=== PATIENT | male | born 1960 | race Caucasian/White ===

== ENCOUNTER 2017-11-22 11:23 | Emergency (ER) | payer MEDICARE, OTHER ==
[2017-11-22 11:38] VITALS: BP 163/95; PULSE 79; TEMP 98; BMI 29.9
[2017-11-22] MEDS ORDERED: CYCLOBENZAPRINE HCL 10 MG TABLET (FP) PO ONE (12:10)
[2017-11-22] MEDS ORDERED: KETOROLAC TROMETHAMINE 60 MG/2 ML VIAL IM ONE (12:10)
[2017-11-22] MEDS ORDERED: CYCLOBENZAPRINE HCL 10 MG TABLET (FP) ONE (12:18)
[2017-11-22] MEDS ORDERED: KETOROLAC TROMETHAMINE 60 MG/2 ML VIAL ONE (12:18)
--- NOTE | 2017-11-22 12:29 | PDOC ---
History of Present Illness - General Chief Complaint: Pain Stated Complaint: BACK PAIN Time Seen by Provider: 11/22/17 11:51 History Source: Patient Exam Limitations: No Limitations - History of Present Illness Initial Comments: 11/22/17 12:29 You male resents the ED with complaints of bilateral upper scapula pain for the past few days worsened with movement and deep breathing. Patient states went to an urgent care clinic 2 days ago and was given Naprosyn along with Flexeril 10 mg which she states did alleviate his discomfort but made him very groggy so stopped taking the medication. Patient denies difficulty breathing, chest pain, fever, rash, swelling, recent travel, recent injury or recent change in activity. Patient states history of cardiac stent alone cholecystectomy . Timing/Duration: other Severity: mild, moderate Associated Symptoms: reports: denies symptoms Past History - Travel Traveled outside of the country in the last 30 days: No - Past Medical History Allergies/Adverse Reactions: Allergies Allergy/AdvReac Type Severity Reaction Status Date / Time No Known Allergies Allergy Verified 11/22/17 11:37 Home Medications: Ambulatory Orders Amlodipine Besylate 10 mg PO DAILY 07/08/15 Aspirin [ASA -] 325 mg PO DAILY 07/08/15 Clopidogrel Bisulfate [Plavix -] 75 mg PO DAILY 07/08/15 Metformin HCl [Glucophage] 1,000 mg PO BID 07/08/15 Metoprolol Succinate [Toprol Xl] 50 mg PO DAILY 07/08/15 Valsartan 160 mg PO DAILY 07/08/15 Cardiac Disorders: Yes COPD: No Diabetes: Yes HTN: Yes Hypercholesterolemia: Yes Kidney Stones: Yes - Surgical History Cardiac Surgery: Yes (2004 [facility]) Cholecystectomy: Yes - Suicide/Smoking/Psychosocial Hx Smoking Status: No Smoking History: Never smoked Have you smoked in the past 12 months: No Number of Cigarettes Smoked Daily: 0 Hx Alcohol Use: Yes Drug/Substance Use Hx: No Substance Use Type: Alcohol Patient Lives Alone: No Lives with/in: spouse/SO Review of Systems - Review of Systems Able to Perform ROS?: No Constitutional: No: Symptoms Reported HEENTM: No: Symptoms Reported Respiratory: No: Symptoms reported Cardiac (ROS): No: Symptoms Reported ABD/GI: No: Symptoms Reported : No: Symptoms Reported Musculoskeletal: Yes: Back Pain, Muscle Pain Integumentary: No: Symptoms Reported Neurological: No: Symptoms reported Endocrine: No: Symptoms Reported Hematologic/Lymphatic: No: Symptoms Reported *Physical Exam - Vital Signs Last Vital Signs Temp Pulse Resp BP Pulse Ox 98 F 79 18 163/95 100 11/22/17 11:34 11/22/17 11:34 11/22/17 11:34 11/22/17 11:34 11/22/17 11:34 - Physical Exam General Appearance: Yes: Nourished, Appropriately Dressed. No: Apparent Distress Neck: positive: Supple. negative: Tender, Decreased range of motion Respiratory/Chest: positive: Lungs Clear, Normal Breath Sounds. negative: Chest Tender, Respiratory Distress, Accessory Muscle Use Cardiovascular: positive: Regular Rhythm, Regular Rate. negative: Murmur Gastrointestinal/Abdominal: positive: Soft. negative: Tenderness (ruq ) Musculoskeletal: positive: Other (tender at bilateral paraspinous muscle at t6- 8 and laterally bilateral). negative: Decreased Range of Motion, Vertebral Tenderness (no midline tenderness) Integumentary: positive: Normal Color, Warm, Moist. negative: Erythema, Rash, Swelling, Ecchymosis Neurologic: positive: Motor Strength 5/5 (ambulatory) Heart Score/ECG Review - History History: Slightly suspicious - Electrocardiogram EKG: Normal - Age Age: 45-65 - Risk Factors Risk Factors Heart Score: Yes Positive family hx of cardiac disease Based on the list above the patient has:: 1-2 risk factors - ECG Intrepretation Rhythm: Regular Rhythm (rate71. sinus rhythm. Intervals are regular. No ST elevation or depression noted. QTC 421 ms.) ED Treatment Course - RADIOLOGY Radiology Studies Ordered: Category Date Time Status CHEST PA & LAT [RAD] Stat Radiology 11/22/17 12:10 Ordered Medical Decision Making - Medical Decision Making 11/22/17 12:33 Patient here with 3-4 days of upper scapular pain which she describes as aching and sharp intermittently worsened with movement and deep breathing. Patient on exam have reproducible pain at T6-T8 paraspinous and laterally bilateral. Secondary to patient's cardiac history patient was ordered for an EKG. Patient will also be ordered for a chest x-ray to rule out ulnar etiology. Patient also ordered for Toradol and Flexeril for secondary to likely muscle skeletal pain. 11/22/17 12:34 Chest x-ray shows no acute pathology or significant change when compared to 201411/22/17 12:53 States moderate improvement of back discomfort. Patient has Flexeril 10 g at home so as discussed with she will score them in half and take 5 mg 3 times a day as needed. She also states has Motrin at home so recommended patient to take 600 mg 3 times a day also for the next few days. *DC/Admit/Observation/Transfer Diagnosis at time of Disposition: Musculoskeletal back pain - Discharge Dispostion Disposition: HOME Condition at time of disposition: Improved - Referrals Referrals: Paresh Schroeder [Primary Care Provider] - - Patient Instructions Printed Discharge Instructions: DI for Back Spasm Additional Instructions: Please take 600 mg of Motrin which is equivocal to 3 tablets of 200 mg 3 times a day for the next 4 days along with Flexeril 5 mg 3 times a day for the next 4 days. He may apply heat to the affected area 15 minutes 4 times a day and gentle massage. - Post Discharge Activity
--- NOTE | 2017-11-24 12:49 | EKG ---
Test Reason : Blood Pressure : / mmHG Vent. Rate : 071 BPM Atrial Rate : 071 BPM P-R Int : 162 ms QRS Dur : 086 ms QT Int : 388 ms P-R-T Axes : 024 011 029 degrees QTc Int : 421 ms NORMAL SINUS RHYTHM NORMAL ECG WHEN COMPARED WITH ECG OF 09-JUL-2015 14:45, NO SIGNIFICANT CHANGE WAS FOUND Confirmed by KALEB PETE MD ([id number]) on 11/24/2017 12:48:34 PM Referred By: SHAW Confirmed By:KALEB PETE MD
== END 2017-11-22 12:59 | disposition home or self-care (01) ==
LOC: JERFT 11:23 → JER 11:23 → JERFT 12:59
PROC: 3E0233Z Introduction of Anti-inflammatory into Muscle, Percutaneous Approach (ICD-10-PCS; principal; 2017-11-22)
DX: M62.830 Muscle spasm of back (principal); M54.6 Pain in thoracic spine; I25.10 Atherosclerotic heart disease of native coronary artery without angina pectoris; I10 Essential (primary) hypertension; Z95.5 Presence of coronary angioplasty implant and graft; E11.9 Type 2 diabetes mellitus without complications; Z79.84 Long term (current) use of oral hypoglycemic drugs; E78.00 Pure hypercholesterolemia, unspecified; Z87.442 Personal history of urinary calculi
CPT/HCPCS: 71046-TC-FY; 93005; 93010; 99281-25

== ENCOUNTER 2022-11-19 04:01 | Day surgery (SDC) | payer OTHER ==
[2022-11-18 15:12] VITALS: BMI 28.5
[2022-11-19] MEDS ORDERED: HYDROCHLOROTHIAZIDE 25 MG TABLET (FP) PO ONE (09:30)
[2022-11-19] MEDS ORDERED: hydrALAZINE HCL 25 MG TABLET (FP) PO ONE (09:30)
[2022-11-19] MEDS ORDERED: LIDOCAINE HCL 1%, 10 MG/ML (10ML VIAL) MDV ONE (10:08)
[2022-11-19] MEDS ORDERED: BUPIVACAINE HCL/PF 0.5% (5MG/ML) 10 ML VIAL ONE (10:08)
[2022-11-19] MEDS ORDERED: LIDOCAINE HCL 2% (20ML MULTI-DOSE VIAL) ONE (10:14)
[2022-11-19] MEDS ORDERED: ceFAZolin SODIUM 1 GM VIAL ONE (11:09)
[2022-11-19] MEDS ORDERED: MIDAZOLAM HCL 2 MG/2 ML SINGLE DOSE VIAL ONE (11:10)
[2022-11-19] MEDS ORDERED: PROPOFOL 20 ML ONE (11:10)
[2022-11-19] MEDS ORDERED: hydrALAZINE HCL 20 MG/ML VIAL ONE (11:17)
[2022-11-19] MEDS ORDERED: LIDOCAINE HCL 2% (50ML VIAL) NR ONE ×2 (11:22)
[2022-11-19] MEDS ORDERED: ceFAZolin SODIUM 1 GM VIAL IVPB ONE ×2 (11:51→12:02)
[2022-11-19] MEDS ORDERED: BUPIVACAINE HCL/PF 0.5% (5 MG/ML) 30 ML VIAL IJ ONE (12:06)
[2022-11-19] MEDS ORDERED: MEPERIDINE HCL 25 MG/ML VIAL ONE (12:18)
[2022-11-19] MEDS ORDERED: ACETAMINOPHEN 1000 MG/100 ML BAG IVPB ONE ×2 (12:19→12:22)
[2022-11-19] MEDS ORDERED: MEPERIDINE HCL CARPU-JECT 25 MG/1 ML DISP.SYRIN IVPUSH ONE ×2 (12:20→12:21)
[2022-11-19 13:51] VITALS: BP 180/71; PULSE 55; RESP 18; TEMP 98.2
== END 2022-11-19 14:40 | disposition home or self-care (01) ==
LOC: JASU-SURG 04:01
PROVIDERS: ATTEND Student in an Organized Health Care Education/Training Program
PROC: 0Y6Q0Z1 Detachment at Left 1st Toe, High, Open Approach (ICD-10-PCS; principal; 2022-11-19 11:00)
DX: E11.621 Type 2 diabetes mellitus with foot ulcer (principal); L97.526 Non-pressure chronic ulcer of other part of left foot with bone involvement without evidence of necrosis; M86.672 Other chronic osteomyelitis, left ankle and foot; Z79.84 Long term (current) use of oral hypoglycemic drugs
CPT/HCPCS: 36415; 73630-TC-LT; 82962; 84132; 87070; 87075; 87186; 87205; 88304-TC; 88305-TC; 88311-TC; 94760; 97116-GP

== ENCOUNTER 2023-01-01 11:52 | Inpatient (IN) | payer OTHER ==
[2023-01-01 11:59] VITALS: BMI 27.8
[2023-01-01 13:08] LABS: BASO % 0.4 % (0-2.0); EOS % 0.2 % (0-4.5); HEMATOCRIT 31.1 % (35.4-49); LYMPH % 3.9 % (8-40); MCH 29.8 pg (25.7-33.7); MCHC 32.3 g/dl (32.0-35.9); MEAN CELL VOLUME 92.3 fl (80-96); MEAN PLT VOLUME 11.2 fl (7.5-11.1); MONO % 7.3 % (3.8-10.2); NEUT % 88.2 % (42.8-82.8); PLATELET COUNT 140 10^3/uL (134-434); RBC 3.37 M/mm3 (4.00-5.60); RDW 14.5 % (11.9-15.9); WHITE BLOOD COUNT 12.4 K/mm3 (4.0-10.0)
[2023-01-01 13:17] LABS: VENOUS BASE EXCESS -7.6 mmol/L (-2-2); VENOUS O2 SATURATION 35.5 % (70-80); VENOUS PCO2 36.4 mmHg (38-52); VENOUS PH 7.31 (7.310-7.410)
[2023-01-01 13:43] LABS: POTASSIUM 5.2 mmol/L (3.5-5.1)
[2023-01-01 13:47] LABS: ALBUMIN 3.6 g/dl (3.4-5.0); BLOOD UREA NITROGEN 55.3 mg/dL (7-18); CALCIUM 8.8 mg/dL (8.5-10.1)
[2023-01-01 13:50] LABS: CREATININE 3.9 mg/dL (0.55-1.3)
[2023-01-01 13:52] LABS: BILIRUBIN,TOTAL 0.8 mg/dL (0.2-1); TOT PROT 7.4 g/dl (6.4-8.2)
[2023-01-01] MEDS ORDERED: DOXYCYCLINE INJECTION 100 MG in DEXTROSE 5%-WATER 100 ML IVPB ONE (14:02)
[2023-01-01] MEDS ORDERED: CEFTRIAXONE 1 GM/50 ML BAG ONE (14:23)
[2023-01-01] MEDS ORDERED: DOXYCYCLINE HYCLATE 100 MG VIAL ONE (14:23)
[2023-01-01 14:47] LABS: EPI CELLS 4 /uL (0-25.1); HYALINE CASTS 0 /uL (0-3.1); PH,URINE 5.5 (5.0-8.0); URINE APPEARANCE CLEAR; URINE BACTERIA 2 /uL (0-1359); URINE BILIRUBIN NEGATIVE (NEGATIVE); URINE COLOR YELLOW; URINE GLUCOSE (UA) NEGATIVE (NEGATIVE); URINE KETONE NEGATIVE (NEGATIVE); URINE LEUK ESTERASE NEGATIVE (NEGATIVE); URINE NITRITE NEGATIVE (NEGATIVE); URINE PROTEIN 4+ (NEGATIVE); URINE RBC 35 /uL (0-23.9); URINE UROBILINOGEN 0.2 mg/dL (0.2-1.0); URINE WBC 3 /uL (0-25.8)
[2023-01-01] MEDS ORDERED: TRIMETHOBENZAMIDE HCL 200MG/2ML INJ IM PRN (16:36)
[2023-01-01] MEDS ORDERED: hydrALAZINE HCL 20 MG/ML VIAL IVPUSH PRN (16:37)
[2023-01-01] MEDS ORDERED: ACETAMINOPHEN 1000 MG/100 ML BAG IVPB PRN (16:39)
[2023-01-01] MEDS ORDERED: SODIUM CHLORIDE 1,000 ML IV SCH (16:45)
[2023-01-01] MEDS ORDERED: MAGNESIUM 1GM/D5W - 1 GM/100 ML IVPB IVPB ONE ×2 (16:59→17:04)
[2023-01-01] MEDS ORDERED: amLODIPine BESYLATE 10 MG TABLET (FP) ONE (17:04)
[2023-01-01] MEDS: amLODIPine BESYLATE 5 MG TABLET (FP) PO SCH (17:13)
[2023-01-01] MEDS ORDERED: SODIUM ZIRCONIUM CYCLOSILICATE (LOKELMA) 5 GM PACKET PO SCH (19:45)
[2023-01-01] MEDS: SODIUM CHLORIDE 0.45% 1,000 ML IV SCH (20:21)
[2023-01-01] MEDS: DOXYCYCLINE INJECTION 100 MG in DEXTROSE 5%-WATER 100 ML IVPB SCH (23:12)
[2023-01-01] MEDS: SODIUM BICARBONATE 650 MG TABLET PO SCH (23:13)
[2023-01-01] MEDS: HEPARIN NA (PORCINE) 5,000 UNITS/ML 1ML VIAL SQ SCH (23:13)
[2023-01-01] MEDS: hydrALAZINE HCL 50 MG TABLET (FP) PO SCH (23:13)
[2023-01-01] MEDS: INSULIN SLIDING SCALE (NOVOLOG) 1 VIAL SQ SCH (23:23)
[2023-01-02] MEDS: HEPARIN NA (PORCINE) 5,000 UNITS/ML 1ML VIAL SQ SCH ×3 (06:00→21:24)
[2023-01-02] MEDS: SODIUM BICARBONATE 650 MG TABLET PO SCH ×3 (06:00→21:24)
[2023-01-02] MEDS: INSULIN SLIDING SCALE (NOVOLOG) 1 VIAL SQ SCH ×4 (06:01→21:25)
[2023-01-02 08:07] LABS: POTASSIUM 4.4 mmol/L (3.5-5.1)
[2023-01-02 08:17] LABS: BASO % 0.5 % (0-2.0); HEMATOCRIT 26.4 % (35.4-49); HEMOGLOBIN 9.1 GM/dL (11.7-16.9); LYMPH % 10.6 % (8-40); MCH 31.6 pg (25.7-33.7); MCHC 34.6 g/dl (32.0-35.9); MEAN CELL VOLUME 91.4 fl (80-96); MEAN PLT VOLUME 11.9 fl (7.5-11.1); MONO % 7.2 % (3.8-10.2); NEUT % 80.7 % (42.8-82.8); PLATELET COUNT 112 10^3/uL (134-434); RBC 2.89 M/mm3 (4.00-5.60); RDW 14.6 % (11.9-15.9); WHITE BLOOD COUNT 10.5 K/mm3 (4.0-10.0)
[2023-01-02 08:33] LABS: CALCIUM 8.1 mg/dL (8.5-10.1)
[2023-01-02 08:34] LABS: BLOOD UREA NITROGEN 48.5 mg/dL (7-18); MAGNESIUM 1.7 mg/dL (1.8-2.4)
[2023-01-02 08:37] LABS: CREATININE 3.6 mg/dL (0.55-1.3); PHOSPHOROUS 3.6 mg/dL (2.5-4.9)
[2023-01-02 08:38] LABS: BILIRUBIN,TOTAL 0.7 mg/dL (0.2-1)
[2023-01-02 08:47] LABS: ALBUMIN 2.7 g/dl (3.4-5.0)
[2023-01-02] MEDS ORDERED: MAGNESIUM SULF 50% (8.12 MEQ/2 ML-1 GM VIAL) IVPB ONE (08:56)
[2023-01-02] MEDS ORDERED: DOXYCYCLINE HYCLATE 100 MG VIAL ONE ×2 (09:03→21:10)
[2023-01-02] MEDS ORDERED: cefTRIAXone SODIUM 1 GM VIAL ONE (09:04)
[2023-01-02] MEDS: DOXYCYCLINE INJECTION 100 MG in DEXTROSE 5%-WATER 100 ML IVPB SCH ×2 (09:05→21:24)
[2023-01-02] MEDS: amLODIPine BESYLATE 5 MG TABLET (FP) PO SCH (09:06)
[2023-01-02] MEDS: CEFTRIAXONE 1 GM in DEXTROSE 5%-WATER - 50 ML IVPB SCH (09:06)
[2023-01-02] MEDS: CLOPIDOGREL BISULFATE 75 MG TABLET (FP) PO SCH (09:06)
[2023-01-02] MEDS: hydrALAZINE HCL 50 MG TABLET (FP) PO SCH ×2 (09:06→21:24)
[2023-01-02] MEDS: NEBIVOLOL 10 MG TABLET (FP) PO SCH (09:08)
[2023-01-02] MEDS: SODIUM CHLORIDE 0.45% 1,000 ML IV SCH ×2 (09:09→20:46)
[2023-01-02] MEDS ORDERED: amLODIPine BESYLATE 5 MG TABLET (FP) PO SCH (10:00)
[2023-01-02] MEDS ORDERED: VALSARTAN 160 MG TABLET PO SCH (10:00)
[2023-01-02] MEDS ORDERED: INSULIN (NOVOLOG) ASPART 100 UNITS/ML 10ML VIAL ONE ×2 (11:38→21:10)
[2023-01-03] MEDS: SODIUM BICARBONATE 650 MG TABLET PO SCH (06:13)
[2023-01-03] MEDS: INSULIN SLIDING SCALE (NOVOLOG) 1 VIAL SQ SCH ×2 (06:13→11:40)
[2023-01-03] MEDS: HEPARIN NA (PORCINE) 5,000 UNITS/ML 1ML VIAL SQ SCH (06:13)
[2023-01-03 08:31] LABS: HEMATOCRIT 26.3 % (35.4-49); HEMOGLOBIN 8.9 GM/dL (11.7-16.9); MCH 30.7 pg (25.7-33.7); MCHC 33.7 g/dl (32.0-35.9); MEAN PLT VOLUME 11.8 fl (7.5-11.1); PLATELET COUNT 113 10^3/uL (134-434); RBC 2.89 M/mm3 (4.00-5.60); RDW 14.4 % (11.9-15.9); WHITE BLOOD COUNT 7.4 K/mm3 (4.0-10.0)
[2023-01-03 08:44] LABS: POTASSIUM 4.3 mmol/L (3.5-5.1)
[2023-01-03 08:51] LABS: CALCIUM 8.3 mg/dL (8.5-10.1)
[2023-01-03 08:52] LABS: BLOOD UREA NITROGEN 49.1 mg/dL (7-18)
[2023-01-03 08:55] LABS: CREATININE 3.8 mg/dL (0.55-1.3)
[2023-01-03] MEDS: hydrALAZINE HCL 50 MG TABLET (FP) PO SCH (09:18)
[2023-01-03] MEDS: CEFTRIAXONE 1 GM in DEXTROSE 5%-WATER - 50 ML IVPB SCH (09:18)
[2023-01-03] MEDS: CLOPIDOGREL BISULFATE 75 MG TABLET (FP) PO SCH (09:18)
[2023-01-03] MEDS: NEBIVOLOL 10 MG TABLET (FP) PO SCH (09:18)
[2023-01-03] MEDS: amLODIPine BESYLATE 5 MG TABLET (FP) PO SCH (09:20)
[2023-01-03] MEDS: DOXYCYCLINE INJECTION 100 MG in DEXTROSE 5%-WATER 100 ML IVPB SCH (10:22)
[2023-01-03 11:52] VITALS: BP 151/65; PULSE 63; RESP 20; TEMP 97.9
== END 2023-01-03 13:23 | disposition home or self-care (01) | DRG 194 ==
LOC: JER 11:52 → JERBED 15:01 → J6S 18:00
PROVIDERS: ADMIT Internal Medicine; ATTEND Internal Medicine
DX: J18.9 Pneumonia, unspecified organism (principal); E87.20 Acidosis, unspecified; N18.4 Chronic kidney disease, stage 4 (severe); E11.9 Type 2 diabetes mellitus without complications; I12.9 Hypertensive chronic kidney disease with stage 1 through stage 4 chronic kidney disease, or unspecified chronic kidney disease; E11.22 Type 2 diabetes mellitus with diabetic chronic kidney disease; I16.0 Hypertensive urgency; I25.10 Atherosclerotic heart disease of native coronary artery without angina pectoris; E78.5 Hyperlipidemia, unspecified; E87.5 Hyperkalemia; D72.829 Elevated white blood cell count, unspecified; D50.9 Iron deficiency anemia, unspecified; R19.7 Diarrhea, unspecified; E11.42 Type 2 diabetes mellitus with diabetic polyneuropathy; Z95.5 Presence of coronary angioplasty implant and graft
CPT/HCPCS: 0241U-QW; 36415; 71045-TC-FY; 80048; 80053; 81003; 82803; 82962; 83605; 83735; 84100; 84484; 85025; 85027; 87040; 87086; 87186; 87899; 93005; 93010; 99285-25; J1644

== ENCOUNTER 2023-03-14 23:06 | Emergency (ER) | payer OTHER ==
[2023-03-14 23:14] VITALS: BMI 27.8
[2023-03-14] MEDS ORDERED: ASPIRIN 81 MG CHEWABLE TABLETS PO ONE (23:38)
[2023-03-14] MEDS ORDERED: NITROGLYCERIN SUBLINGUAL 1/150 0.4 MG TAB SL ONE (23:38)
[2023-03-14] MEDS ORDERED: HEPARIN NA (PORCINE) 5,000 UNITS/ML 1ML VIAL ONE (23:38)
[2023-03-14] MEDS ORDERED: HEPARIN NA (PORCINE) 5,000 UNITS/ML 1ML VIAL IVPUSH PRN ×2 (23:38)
[2023-03-14] MEDS ORDERED: HEPARIN NA (PORCINE) 5,000 UNITS/ML 1ML VIAL IVPUSH ONE (23:38)
[2023-03-14] MEDS ORDERED: NITROGLYCERIN SUBLINGUAL 1/150 0.4 MG TAB ONE (23:38)
[2023-03-14] MEDS ORDERED: HEPARIN INFUSION - 25,000 UNITS/500 ML INFUS.BAG IVPB ONE (23:38)
[2023-03-14] MEDS ORDERED: TICAGRELOR 90 MG TABLET PO ONE ×2 (23:38→23:47)
[2023-03-14] MEDS ORDERED: ASPIRIN 81 MG CHEWABLE TABLETS ONE (23:41)
[2023-03-14] MEDS ORDERED: HEPARIN INFUSION - 25,000 UNITS/500 ML INFUS.BAG IVPB SCH (23:45)
[2023-03-14 23:52] LABS: HEMATOCRIT 28.1 % (35.4-49); HEMOGLOBIN 9.3 GM/dL (11.7-16.9); LYMPH % 9.9 % (8-40); MCH 30.6 pg (25.7-33.7); MCHC 33.3 g/dl (32.0-35.9); MEAN CELL VOLUME 91.9 fl (80-96); MEAN PLT VOLUME 10.1 fl (7.5-11.1); MONO % 4.2 % (3.8-10.2); NEUT % 82.9 % (42.8-82.8); PLATELET COUNT 173 10^3/uL (134-434); RBC 3.05 M/mm3 (4.00-5.60); RDW 14.9 % (11.9-15.9); WHITE BLOOD COUNT 11.8 K/mm3 (4.0-10.0)
[2023-03-14] MEDS ORDERED: LABETALOL HCL 5 MG/1 ML (100MG/20 ML VIAL) IVPUSH ONE (23:53)
[2023-03-15] LABS: INR 1.17 (0.83-1.09); PROTHROMBIN TIME (PATIENT) 13.5 SEC (9.7-13.0)
[2023-03-15] MEDS ORDERED: LABETALOL HCL 20 MG/4 ML VIAL ONE ×2 (00:04→08:21)
[2023-03-15 00:11] LABS: CHLORIDE 110 mmol/L (98-107); POTASSIUM 4.3 mmol/L (3.5-5.1); SODIUM 143 mmol/L (136-145)
[2023-03-15 00:13] LABS: CALCIUM 8.3 mg/dL (8.5-10.1)
[2023-03-15 00:14] LABS: ALBUMIN 3.4 g/dl (3.4-5.0); ANION GAP 9 MMOL/L (8-16); CO2 24 mmol/L (21-32); GLUCOSE,RANDOM 176 mg/dL (74-106); MAGNESIUM 1.8 mg/dL (1.8-2.4)
[2023-03-15 00:17] LABS: CREATININE 5.3 mg/dL (0.55-1.3); SGOT/AST 17 U/L (15-37); SGPT/ALT 12 U/L (13-61)
[2023-03-15 00:19] LABS: BILIRUBIN,TOTAL 0.3 mg/dL (0.2-1); TOT PROT 7.1 g/dl (6.4-8.2)
[2023-03-15 00:20] LABS: ALK PHOS 62 U/L (45-117)
[2023-03-15 07:25] VITALS: PULSE 86; RESP 16; TEMP 98.7
[2023-03-15] MEDS ORDERED: METOPROLOL TARTRATE 5 MG/5 ML VIAL IVPUSH ONE (08:19)
[2023-03-15 08:29] VITALS: BP 189/84
== END 2023-03-15 08:30 | disposition short-term general hospital (02) ==
LOC: JER 23:06
PROC: 3E033NZ Introduction of Analgesics, Hypnotics, Sedatives into Peripheral Vein, Percutaneous Approach (ICD-10-PCS; principal; 2023-03-14)
PROC: 3E033GC Introduction of Other Therapeutic Substance into Peripheral Vein, Percutaneous Approach (ICD-10-PCS; 2023-03-14)
PROC: 3E033GC Introduction of Other Therapeutic Substance into Peripheral Vein, Percutaneous Approach (ICD-10-PCS; 2023-03-15)
DX: R06.02 Shortness of breath (principal); R07.9 Chest pain, unspecified; R00.0 Tachycardia, unspecified; I16.1 Hypertensive emergency; I21.4 Non-ST elevation (NSTEMI) myocardial infarction; I10 Essential (primary) hypertension
CPT/HCPCS: 36415; 71045-TC-FY; 80053; 82550; 82553; 83735; 84484; 85025; 85610; 85730; 86850; 86900; 86901; 87635; 93005; 93010; 99291; J1644

== ENCOUNTER 2023-03-24 10:34 | Emergency (ER) | payer OTHER ==
[2023-03-24 11:21] VITALS: BMI 27.8
[2023-03-24 13:31] LABS: BASO % 1.3 % (0-2.0); EOS % 1.9 % (0-4.5); HEMATOCRIT 28.9 % (35.4-49); HEMOGLOBIN 9.5 GM/dL (11.7-16.9); LYMPH % 17.5 % (8-40); MCH 30.4 pg (25.7-33.7); MCHC 32.8 g/dl (32.0-35.9); MEAN CELL VOLUME 92.6 fl (80-96); MEAN PLT VOLUME 9.8 fl (7.5-11.1); MONO % 6.6 % (3.8-10.2); NEUT % 72.7 % (42.8-82.8); PLATELET COUNT 285 10^3/uL (134-434); RBC 3.12 M/mm3 (4.00-5.60); RDW 14.2 % (11.9-15.9)
[2023-03-24 13:39] LABS: INR 1.17 (0.83-1.09); PROTHROMBIN TIME (PATIENT) 13.5 SEC (9.7-13.0)
[2023-03-24 13:42] LABS: ACTIVATED PTT 29.5 SECONDS (25.2-36.5)
[2023-03-24 14:41] LABS: ALBUMIN 3.7 g/dl (3.4-5.0); CALCIUM 8.8 mg/dL (8.5-10.1)
[2023-03-24 14:44] LABS: CREATININE 4.7 mg/dL (0.55-1.3)
[2023-03-24 14:46] LABS: BILIRUBIN,TOTAL 0.1 mg/dL (0.2-1); TOT PROT 7.8 g/dl (6.4-8.2)
[2023-03-24 14:57] LABS: BLOOD UREA NITROGEN 36.6 mg/dL (7-18)
[2023-03-24 15:46] VITALS: BP 189/74; PULSE 64; RESP 19; TEMP 98.1
== END 2023-03-24 15:45 | disposition home or self-care (01) ==
LOC: JER 10:34
DX: T82.838A Hemorrhage due to vascular prosthetic devices, implants and grafts, initial encounter (principal); N18.6 End stage renal disease; Z99.2 Dependence on renal dialysis
CPT/HCPCS: 36415; 71045-TC-FY; 80053; 85025; 85610; 85730; 86704; 86705; 93005; 93010; 99285-25

== ENCOUNTER 2023-03-25 07:17 | Observation (INO) | payer OTHER ==
[2023-03-25 07:32] VITALS: BMI 27.8
[2023-03-25 08:44] LABS: BASO % 0.7 % (0-2.0); EOS % 2.2 % (0-4.5); HEMATOCRIT 24.5 % (35.4-49); LYMPH % 14.7 % (8-40); MCH 30.7 pg (25.7-33.7); MCHC 32.6 g/dl (32.0-35.9); MEAN CELL VOLUME 94.3 fl (80-96); MEAN PLT VOLUME 9.8 fl (7.5-11.1); MONO % 6.9 % (3.8-10.2); NEUT % 75.5 % (42.8-82.8); PLATELET COUNT 239 10^3/uL (134-434); RDW 14.7 % (11.9-15.9); WHITE BLOOD COUNT 9.6 K/mm3 (4.0-10.0)
[2023-03-25 08:53] LABS: INR 1.18 (0.83-1.09); PROTHROMBIN TIME (PATIENT) 13.7 SEC (9.7-13.0)
[2023-03-25 08:56] LABS: ACTIVATED PTT 30.4 SECONDS (25.2-36.5)
[2023-03-25 09:07] LABS: POTASSIUM 4.3 mmol/L (3.5-5.1)
[2023-03-25 09:09] LABS: CALCIUM 7.9 mg/dL (8.5-10.1)
[2023-03-25 09:10] LABS: MAGNESIUM 2.2 mg/dL (1.8-2.4)
[2023-03-25 09:12] LABS: CREATININE 4.9 mg/dL (0.55-1.3)
[2023-03-25 09:14] LABS: BILIRUBIN,TOTAL 0.2 mg/dL (0.2-1); PHOSPHOROUS 4.4 mg/dL (2.5-4.9); TOT PROT 6.6 g/dl (6.4-8.2)
[2023-03-25] MEDS ORDERED: SODIUM CHLORIDE 250 ML IV PRN (14:32)
[2023-03-25] MEDS ORDERED: EPOETIN ALFA-EPBX 10,000 UNIT/ML VIAL IVPUSH ONE (15:00)
[2023-03-25] MEDS ORDERED: INSULIN SLIDING SCALE (NOVOLOG) 1 VIAL SQ SCH (16:30)
[2023-03-25 17:09] VITALS: BP 133/68; PULSE 60; RESP 22; TEMP 96.8
[2023-03-25] MEDS ORDERED: HEPARIN NA (PORCINE) 5,000 UNITS/ML 1ML VIAL SQ SCH (22:00)
[2023-03-25] MEDS ORDERED: ATORVASTATIN CA 80 MG TABLET (FP) PO SCH (22:00)
[2023-03-25] MEDS ORDERED: FERROUS SO4 325 MG TABLET (FP) PO SCH (22:00)
[2023-03-25] MEDS ORDERED: TAMSULOSIN HCL 0.4 MG CAP PO SCH (22:00)
[2023-03-26] MEDS ORDERED: FOLIC ACID 1 MG TABLET (FP) PO SCH (10:00)
[2023-03-26] MEDS ORDERED: ISOSORBIDE MONONITRATE 60 MG TAB.SR.24H (FP) PO SCH (10:00)
[2023-03-26] MEDS ORDERED: NIFEdipine E.R 60 MG TABLET PO SCH (10:00)
[2023-03-26] MEDS ORDERED: CLOPIDOGREL BISULFATE 75 MG TABLET (FP) PO SCH (10:00)
[2023-03-26] MEDS ORDERED: THIAMINE HCL 100 MG TABLET (FP) PO SCH (10:00)
[2023-03-26] MEDS ORDERED: ASPIRIN COATED 81 MG TABLET.EC PO SCH (10:00)
== END 2023-03-25 17:10 | disposition home or self-care (01) ==
LOC: JER 07:17 → JERBED 10:18
PROVIDERS: ADMIT Internal Medicine; ATTEND Internal Medicine
PROC: 3E033GC Introduction of Other Therapeutic Substance into Peripheral Vein, Percutaneous Approach (ICD-10-PCS; principal; 2023-03-25)
DX: I13.11 Hypertensive heart and chronic kidney disease without heart failure, with stage 5 chronic kidney disease, or end stage renal disease (principal); E11.21 Type 2 diabetes mellitus with diabetic nephropathy; I25.10 Atherosclerotic heart disease of native coronary artery without angina pectoris; Z99.2 Dependence on renal dialysis; Z95.5 Presence of coronary angioplasty implant and graft; Z90.49 Acquired absence of other specified parts of digestive tract; I11.9 Hypertensive heart disease without heart failure; T82.838A Hemorrhage due to vascular prosthetic devices, implants and grafts, initial encounter; I25.2 Old myocardial infarction; E78.5 Hyperlipidemia, unspecified; Z79.4 Long term (current) use of insulin; Y82.8 Other medical devices associated with adverse incidents
CPT/HCPCS: 36415; 71045-TC-FY; 80053; 83735; 84100; 85025; 85610; 85730; 86803; 86850; 86900; 86901; 87340; 93005; 93010; 96374; 99285-25; G0378; Q5106

== ENCOUNTER 2023-06-04 04:51 | Day surgery (SDC) | payer OTHER ==
[2023-05-30 16:29] VITALS: BMI 25.7
[2023-06-04] MEDS ORDERED: BUPIVACAINE HCL/PF 0.5% (5MG/ML) 10 ML VIAL ONE (07:10)
[2023-06-04 07:30] LABS: POTASSIUM 6.2 mmol/L (3.5-5.1)
[2023-06-04] MEDS ORDERED: FENTANYL CITRATE/PF 50 MCG/ML VIAL ONE ×3 (07:38→08:46)
[2023-06-04] MEDS ORDERED: PROPOFOL 20 ML ONE (07:38)
[2023-06-04] MEDS ORDERED: ROCURONIUM BROMIDE 50 MG/5 ML SYRINGE ONE (07:38)
[2023-06-04] MEDS ORDERED: MIDAZOLAM HCL 2 MG/2 ML SINGLE DOSE VIAL ONE (07:38)
[2023-06-04] MEDS ORDERED: ceFAZolin SODIUM 1 GM VIAL IVPB ONE (08:27)
[2023-06-04] MEDS ORDERED: BUPIVACAINE HCL/PF 0.5% (5MG/ML) 10 ML VIAL NR ONE (08:34)
[2023-06-04] MEDS ORDERED: HEPARIN NA (PORCINE) 5,000 UNITS/ML 1ML VIAL SQ ONE (08:34)
[2023-06-04] MEDS ORDERED: NEOSTIGMINE METHYLSULFATE 0.5 MG/1 ML - 10 ML MDV ONE (08:50)
[2023-06-04] MEDS ORDERED: SODIUM CHLORIDE 1,000 ML IV SCH (09:45)
[2023-06-04 11:37] VITALS: BP 131/68; PULSE 58; RESP 18; TEMP 97.8
== END 2023-06-04 10:50 | disposition home or self-care (01) ==
LOC: JASU-SURG 04:51
PROVIDERS: ATTEND Surgery
PROC: 0WHG33Z Insertion of Infusion Device into Peritoneal Cavity, Percutaneous Approach (ICD-10-PCS; principal; 2023-06-04 08:00)
DX: I13.11 Hypertensive heart and chronic kidney disease without heart failure, with stage 5 chronic kidney disease, or end stage renal disease (principal); E11.22 Type 2 diabetes mellitus with diabetic chronic kidney disease; N18.6 End stage renal disease; Z99.2 Dependence on renal dialysis
CPT/HCPCS: 36415; 82962; 84132; 94760; C1750; J1644

== ENCOUNTER 2024-01-19 21:48 | Emergency (ER) | payer OTHER ==
[2024-01-19 21:52] VITALS: BP 182/74; PULSE 58; RESP 18; TEMP 98.4; BMI 27.8
[2024-01-19] MEDS ORDERED: morphine SULFATE 4 MG/ML VIAL ONE (23:01)
[2024-01-19 23:20] LABS: HEMATOCRIT 34.7 % (35.4-49); HEMOGLOBIN 11.3 GM/dL (11.7-16.9); LYMPH % 10.2 % (8-40); MCH 30.8 pg (25.7-33.7); MCHC 32.5 g/dl (32.0-35.9); MEAN CELL VOLUME 94.8 fl (80-96); MEAN PLT VOLUME 9.2 fl (7.5-11.1); MONO % 4.1 % (3.8-10.2); NEUT % 83.7 % (42.8-82.8); PLATELET COUNT 137 10^3/uL (134-434); RBC 3.66 M/mm3 (4.00-5.60); RDW 14.5 % (11.9-15.9); WHITE BLOOD COUNT 11.3 K/mm3 (4.0-10.0)
[2024-01-19 23:24] LABS: EPI CELLS 13 /uL (0-25.1); HYALINE CASTS 1 /uL (0-3.1); PH,URINE 6.5 (5.0-8.0); URINE APPEARANCE CLEAR; URINE BACTERIA 5 /uL (0-1359); URINE BILIRUBIN NEGATIVE (NEGATIVE); URINE COLOR YELLOW; URINE GLUCOSE (UA) TRACE (NEGATIVE); URINE KETONE NEGATIVE (NEGATIVE); URINE LEUK ESTERASE NEGATIVE (NEGATIVE); URINE NITRITE NEGATIVE (NEGATIVE); URINE PROTEIN 3+ (NEGATIVE); URINE RBC 423 /uL (0-23.9); URINE UROBILINOGEN 0.2 mg/dL (0.2-1.0); URINE WBC 13 /uL (0-25.8)
[2024-01-19 23:27] LABS: INR 1.13 (0.83-1.09)
[2024-01-19 23:30] LABS: ACTIVATED PTT 26.7 SECONDS (25.2-36.5)
[2024-01-19] MEDS: morphine SULFATE 4 MG/ML VIAL IVPUSH ONE (23:39)
[2024-01-19 23:51] LABS: CALCIUM 8.4 mg/dL (8.5-10.1)
[2024-01-19 23:52] LABS: MAGNESIUM 1.8 mg/dL (1.8-2.4)
[2024-01-19 23:53] LABS: ALBUMIN 3.7 g/dl (3.4-5.0)
[2024-01-19 23:55] LABS: CREATININE 5.4 mg/dL (0.55-1.3)
[2024-01-19 23:57] LABS: TOT PROT 7.4 g/dl (6.4-8.2)
[2024-01-19] MEDS: KETOROLAC TROMETHAMINE 30 MG/1 ML VIAL IM ONE (23:57)
[2024-01-20 00:01] LABS: POTASSIUM 5.3 mmol/L (3.5-5.1)
[2024-01-20 00:11] LABS: BLOOD UREA NITROGEN 55.2 mg/dL (7-18)
[2024-01-20 00:17] LABS: BILIRUBIN,TOTAL 0.4 mg/dL (0.2-1)
== END 2024-01-20 03:09 | disposition home or self-care (01) ==
LOC: JER 21:48
PROC: 3E033NZ Introduction of Analgesics, Hypnotics, Sedatives into Peripheral Vein, Percutaneous Approach (ICD-10-PCS; principal; 2024-01-19)
DX: N23 Unspecified renal colic (principal); R11.2 Nausea with vomiting, unspecified
CPT/HCPCS: 36415; 74176-TC; 80053; 81003; 83735; 84484; 85025; 85610; 85730; 93005; 93010; 99285-25

== ENCOUNTER 2024-05-24 11:37 | Emergency (ER) | payer OTHER ==
[2024-05-24 11:43] VITALS: PULSE 66; RESP 18; TEMP 98.4; BMI 27.8
[2024-05-24 12:30] VITALS: BP 171/65
== END 2024-05-24 14:10 | disposition home or self-care (01) ==
LOC: JER 11:37
DX: U07.1 COVID-19 (principal); R05.9 Cough, unspecified; R51.9 Headache, unspecified; R50.9 Fever, unspecified
CPT/HCPCS: 0241U-QW; 99283-25